=== PATIENT | male | born 1965 | race Caucasian/White ===

== ENCOUNTER 2020-11-12 09:19 | Emergency (ER) | payer OTHER ==
[~2020-11-12] VITALS: Ht 167.6 cm; Wt 98.9 kg
[2020-11-12 09:29] VITALS: BP 142/89
[2020-11-12] MEDS ORDERED: SILVER NITRATE APPLICATOR 1 EA SWAB TP ONE (09:40)
[2020-11-12 10:30] VITALS: BP 142/89
--- NOTE | 2020-11-12 10:30 | NUR ---
Pt assessed and discharged by Dr Chapman, No nursing interventions performed
--- NOTE | 2020-11-12 10:31 | NUR ---
Patient discharged with v/s stable. Written and verbal after care instructions given and explained. Patient alert, oriented and verbalized understanding of instructions. Ambulatory with steady gait. All questions addressed prior to discharge. ID band removed. Patient advised to follow up with PMD. Rx of Afrin nasal spray given. Patient educated on indication of medication including possible reaction and side effects. Opportunity to ask questions provided and answered.
== END 2020-11-12 10:31 | disposition home or self-care (01) ==
LOC: MED 09:19
DX: R04.0 Epistaxis (principal)
CPT/HCPCS: 30901; 99282; 99284

== ENCOUNTER 2020-11-16 12:36 | Emergency (ER) | payer OTHER ==
[~2020-11-16] VITALS: Ht 167.6 cm; Wt 63.5 kg
[2020-11-16 12:39] VITALS: BP 111/71
[2020-11-16 14:37] LABS: BASOPHILS # (AUTO) 0.1 K/uL (0.00-0.22); BASOPHILS % (AUTO) 0.6 % (0.0-2.0); EOSINOPHILS % (AUTO) 0.2 % (0.0-4.0); HEMATOCRIT 40.4 % (36-52); HEMOGLOBIN 13.5 g/dL (12.0-18.0); LYMPHOCYTES # (AUTO) 2.5 K/uL (2.0-11.5); LYMPHOCYTES % (AUTO) 22.9 % (20.5-51.1); MEAN CORPUSCULAR HEMOGLOBIN 30 pg (27-31); MEAN CORPUSCULAR HGB CONC 33 g/dL (33-37); MEAN CORPUSCULAR VOLUME 89.2 fL (80-94); MONOCYTES # (AUTO) 0.6 K/uL (0.8-1.0); MONOCYTES % (AUTO) 5.9 % (1.7-9.3); NEUTROPHILS # (AUTO) 7.6 K/uL (1.8-7.7); NEUTROPHILS % (AUTO) 70.4 % (42.2-75.2); PLATELET COUNT (AUTO) 451 K/uL (140-450); RED BLOOD CELL COUNT(AUTO) 4.53 MIL/uL (4.20-6.10); WHITE BLOOD COUNT (AUTO) 10.9 K/uL (4.8-10.8)
[2020-11-16 15:21] LABS: ALBUMIN 3.6 g/dL (3.4-5.0); ANION GAP 14.3 (8-16); CARBON DIOXIDE 26.7 mmol/L (21-32); CREATININE 0.9 mg/dL (0.6-1.3); TOTAL BILIRUBIN 0.6 mg/dL (0.0-1.0)
== END 2020-11-16 13:16 | disposition left against medical advice (07) ==
LOC: MED 12:36
DX: R55 Syncope and collapse (principal); E11.9 Type 2 diabetes mellitus without complications; I10 Essential (primary) hypertension
CPT/HCPCS: 36415; 71045; 80053; 84484; 85025; 99285